=== PATIENT | female | born 1990 | race Two or more races ===

== ENCOUNTER 2017-05-13 21:44 | Emergency (ER) | payer MEDICAID, OTHER, SELFPAY ==
[~2017-05-13] VITALS: Ht 162.6 cm; Wt 71.2 kg
[~2017-05-13 21:44] MED LIST: TAMIFLU75 MG PO
[2017-05-13 23:39] LABS: BASOPHILS % (AUTO) 0.6 % (0.0-2.0); HEMATOCRIT 36.3 % (37.0-47.0); HEMOGLOBIN 12.6 G/DL (12.0-16.0); LYMPHOCYTES % (AUTO) 32.6 % (20.0-45.0); MEAN CORPUSCULAR VOLUME 91 FL (80-99); MONOCYTES % (AUTO) 8.5 % (1.0-10.0); NEUTROPHILS % (AUTO) 56.2 % (45.0-75.0); PLATELET COUNT 292 K/UL (150-450); RED BLOOD COUNT 3.99 M/UL (4.20-5.40); RED CELL DISTRIBUTION WIDTH 11.1 % (11.6-14.8)
[2017-05-13 23:49] LABS: ANION GAP 4 mmol/L (5-15); BLOOD UREA NITROGEN 13 mg/dL (7-18); CALCIUM 8.3 MG/DL (8.5-10.1); CARBON DIOXIDE 30 MMOL/L (21-32); CHLORIDE 104 MMOL/L (98-107); CREATININE 0.6 MG/DL (0.55-1.30); POTASSIUM 3.9 MMOL/L (3.5-5.1); SODIUM 138 MMOL/L (136-145)
[2017-05-13 23:53] LABS: ALANINE AMINOTRANSFERASE 22 U/L (12-78); ALBUMIN 3.5 G/DL (3.4-5.0); ALBUMIN/GLOBULIN RATIO 0.9 (1.0-2.7); ALKALINE PHOSPHATASE 81 U/L (46-116); ASPARTATE AMINO TRANSFERASE 15 U/L (15-37); BILIRUBIN,TOTAL 0.2 MG/DL (0.2-1.0)
[2017-05-13] MEDS ORDERED: IBUPROFEN600 MG ORAL (23:58)
[2017-05-14 00:26] VITALS: BP 108/65
--- NOTE | 2017-05-14 01:33 | Emergency Room Report ---
History of Present Illness General Chief Complaint: Headache Source: Patient Present Illness HPI Patient is a 26-year-old female presented after gradual onset of headache and generalized weakness over the past 2 weeks. Patient had increased pain to her forehead. The this is worse with movement. She denied any fever. She denied any urinary symptoms. She had not been vomiting. She denies being . Patient has no sick contacts at home. Patient states uses control implant. Allergies: Coded Allergies: No Known Allergies (Unverified , 04/08/12) Patient History Past Medical History: see triage record Last Menstrual Period: 04/21/17 Now: No - nexplanon implant in left arm Reviewed Nursing Documentation: PMH: Agreed, PSxH: Agreed Nursing Documentation-PMH Past Medical History: No History, Except For Review of Systems All Other Systems: negative except mentioned in HPI Physical Exam Vital Signs Date Time Temp Pulse Resp B/P (MAP) Pulse Ox O2 Delivery O2 Flow Rate FiO2 05/13/17 22:06 98.3 71 16 108/65 98 Room Air 98.2 General Appearance: well appearing, no apparent distress, alert, GCS 15 Head: normocephalic, atraumatic ENT: hearing grossly normal, normal voice Neck: full range of motion, supple Respiratory: no respiratory distress, speaking full sentences Cardiovascular #1: normal inspection, regular rate, rhythm, no edema Gastrointestinal: normal inspection Genitourinary: ext genitalia/vag normal Musculoskeletal: no calf tenderness Neurologic: normal inspection, alert, oriented x3, responsive, director career III-XII nml as tested, motor strength/tone normal, normal gait Psychiatric: mood/affect normal Skin: no rash Medical Decision Making Diagnostic Impression: Primary Impression: Headache ER Course Patient presented for headache. Differential diagnoses included but was not limited to skull fracture, subarachnoid hemorrhage, meningitis, aneurysm, mass lesion, intracranial hemorrhage.Because of complexity of patient's case laboratory testing and imaging studies were ordered. Laboratory studies are normal hemoglobin as well as normal white blood count. Patient did not have any evidence of urinary infection at this time. The patient's headache appears to be viral in nature. She was given ibuprofen prescription.The patient is advised to follow up with primary care doctor in 1- 2 days. Patient is advised to return if any worsening condition or if any changes in status that are concerning. This report is dictated with [employer] truck loader software which may occasionally lead to discrepancies related to use of this software. Labs Test 05/13/17 23:30 White Blood Count 10.0 K/UL (4.8-10.8) Red Blood Count 3.99 M/UL (4.20-5.40) Hemoglobin 12.6 G/DL (12.0-16.0) Hematocrit 36.3 % (37.0-47.0) Mean Corpuscular Volume 91 FL (80-99) Mean Corpuscular Hemoglobin 31.7 PG (27.0-31.0) Mean Corpuscular Hemoglobin Concent 34.8 G/DL (32.0-36.0) Red Cell Distribution Width 11.1 % (11.6-14.8) Platelet Count 292 K/UL (150-450) Mean Platelet Volume 5.9 FL (6.5-10.1) Neutrophils (%) (Auto) 56.2 % (45.0-75.0) Lymphocytes (%) (Auto) 32.6 % (20.0-45.0) Monocytes (%) (Auto) 8.5 % (1.0-10.0) Eosinophils (%) (Auto) 2.0 % (0.0-3.0) Basophils (%) (Auto) 0.6 % (0.0-2.0) Sodium Level 138 MMOL/L (136-145) Potassium Level 3.9 MMOL/L (3.5-5.1) Chloride Level 104 MMOL/L (98-107) Carbon Dioxide Level 30 MMOL/L (21-32) Anion Gap 4 mmol/L (5-15) Blood Urea Nitrogen 13 mg/dL (7-18) Creatinine 0.6 MG/DL (0.55-1.30) Estimat Glomerular Filtration Rate > 60 mL/min (>60) Glucose Level 83 MG/DL (74-106) Calcium Level 8.3 MG/DL (8.5-10.1) Total Bilirubin 0.2 MG/DL (0.2-1.0) Aspartate Amino Transf (AST/SGOT) 15 U/L (15-37) Alanine Aminotransferase (ALT/SGPT) 22 U/L (12-78) Alkaline Phosphatase 81 U/L (46-116) Total Protein 7.4 G/DL (6.4-8.2) Albumin 3.5 G/DL (3.4-5.0) Globulin 3.9 g/dL Albumin/Globulin Ratio 0.9 (1.0-2.7) Last Vital Signs Date Time Temp Pulse Resp B/P (MAP) Pulse Ox O2 Delivery O2 Flow Rate FiO2 05/14/17 00:26 98.3 16 108/65 98 Room Air 98.2 05/13/17 22:06 71 Status: improved Disposition: HOME, SELF-CARE Condition: Stable Scripts Ibuprofen* (MOTRIN*) 600 Mg Tablet 600 MG ORAL Q8H Y for For Pain, #30 TAB 0 Refills Prov: Noel Masterson 05/13/17 Referrals: [facility]ERR[facility] (PCP) Patient Instructions: General Headache Without Cause Noel Masterson May 14, 2017 01:33
--- NOTE | 2017-05-14 08:56 | Diagnostic Imaging Report ---
Indication: Headache Technique: Continuous helical CT scanning of the head was performed without intravenous contrast material. Axial and coronal 5 mm sections were generated. Radiation dose was minimized using automated exposure control Dose: Total Dose Length Product - DLP 1312.[address] Dose Index - CTDIvol(s) 70.38 mGy. Comparison: 04/07/2007 Findings: The ventricular system is normal in size and configuration. There is no shift of midline structures. No abnormal extra-axial fluid collections are noted. There is no evidence of intracerebral bleeding. No other abnormal high or low density areas are noted within the brain. Intact calvarium. Visualized orbits and sinuses are unremarkable. No significant interim change Impression: Normal CT scan of the head without contrast material. This agrees with the preliminary interpretation provided overnight by [facility]. The CT scanner at [facility] is accredited by the [employer] and the scans are performed using protocols designed to limit radiation exposure to as low as reasonably achievable to attain images of sufficient resolution adequate for diagnostic evaluation.
== END 2017-05-14 00:27 | disposition home or self-care (01) ==
LOC: EMR 22:21
DX: R51 Headache (principal); R53.1 Weakness
CPT/HCPCS: 36415; 70450; 80053; 85025; 99283

== ENCOUNTER 2017-08-20 14:06 | Emergency (ER) | payer OTHER ==
[~2017-08-20] VITALS: Ht 160 cm; Wt 73.5 kg
[~2017-08-20 14:06] MED LIST changes: +IBUPROFEN600 MG ORAL
[2017-08-20 14:20] VITALS: BP 97/61
[2017-08-20] MEDS ORDERED: Fluorescein Strips LEFT EYE ONE (14:45)
[2017-08-20] MEDS ORDERED: Tetracaine 0.5% Opth 4ml Soln LEFT EYE ONE (14:45)
[2017-08-20] MEDS ORDERED: Fluorescein Strips ONE (14:46)
[2017-08-20] MEDS ORDERED: Tetracaine 0.5% Opth 4ml Soln ONE (14:46)
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
[2017-08-20] MEDS ORDERED: TYLENOL EXTRA500 MG ORAL (16:06)
[2017-08-20] MEDS ORDERED: CILOXAN 0.3% O1 DROP RIGHT EYE (16:06)
[2017-08-20 16:16] VITALS: BP 115/78
== END 2017-08-20 19:15 | disposition home or self-care (01) ==
LOC: EMR 16:17
DX: S05.01XA Injury of conjunctiva and corneal abrasion without foreign body, right eye, initial encounter (principal); S05.12XA Contusion of eyeball and orbital tissues, left eye, initial encounter; Y04.0XXA Assault by unarmed brawl or fight, initial encounter; Y92.9 Unspecified place or not applicable
CPT/HCPCS: 70480; 99284

== ENCOUNTER 2017-09-11 14:23 | Emergency (ER) | payer OTHER ==
[~2017-09-11] VITALS: Ht 162.6 cm; Wt 73.5 kg
[~2017-09-11 14:23] MED LIST changes: +CILOXAN 0.3% O1 DROP RIGHT EYE; +TYLENOL EXTRA500 MG ORAL
[2017-09-11] MEDS ORDERED: NKM (14:30)
[2017-09-11 14:33] VITALS: BP 119/78
--- NOTE | 2017-09-11 14:48 | Emergency Room Report ---
History of Present Illness General Chief Complaint: Chest Pain Source: Patient Present Illness HPI Patient is a 27-year-old female who is presenting with palpitations associated with dyspnea and shortness of breath and sweating. Patient states she's had 3 episodes today starting at approximately 1050. She is uncertain how long these episodes lasted currently she feels normal. The patient states a history of these symptoms dating back several years she gets them approximately every 2-3 months and when she gets them she gets them approximately 3 times per month. She has not seen a physician or had any workup for these symptoms in the past.The patient denies significant alcohol or any drug use, denies energy drinks other than once every several days, denies significant soda or caffeinated beverage intake. Allergies: Coded Allergies: No Known Allergies (Unverified , 04/08/12) Patient History Past Medical History: none Past Surgical History: none Pertinent Family History: none Social History: Denies: smoking, alcohol use, drug use Last Menstrual Period: 08/30/17 Nursing Documentation-[facility] Past Medical History: No Stated History Review of Systems Constitutional: Denies: no symptoms, see HPI, chills, sweats, fever, malaise, weakness, other Eye: Denies: no symptoms, see HPI, eye pain, blurred vision, tearing, double vision, nose pain, nose congestion, acuity changes, discharge, other ENT: Denies: no symptoms, see HPI, ear pain, ear discharge, nose pain, nose congestion, throat pain, throat swelling, mouth pain, hearing loss, nasal discharge, other Respiratory: Reports: see HPI Cardiovascular: Reports: see HPI Gastrointestinal: Denies: no symptoms, see HPI, abdominal pain, constipation, diarrhea, nausea, vomiting, melena, hematemesis, other Genitourinary: Denies: no symptoms, see HPI, discharge, dysuria, frequency, hematuria, pain, retention, incontinence, urgency, vag bleed/dc, other Musculoskeletal: Denies: no symptoms, see HPI, back pain, gout, joint pain, joint swelling, muscle pain, muscle stiffness, other Skin: Denies: no symptoms, see HPI, rash, change in color, change in hair/nails , dryness, lesions, other Psychiatric: Denies: no symptoms, see HPI, prior hx, anxiety, depressed feelings, emotional problems, SI, HI, hallucinations, other Neurological: Denies: no symptoms, see HPI, headache, numbness, paresthesia, seizure, tingling, tremors, focal weakness, syncope, dizziness, other Endocrine: Denies: no symptoms, see HPI, excessive sweating, flushing, intolerance to temperature, increased thirst, increased urine, unexplained weight loss, other Hematologic/Lymphatic: Denies: no symptoms, see HPI, anemia, blood clots, easy bleeding, easy bruising, swollen glands, diathesis, other Physical Exam Vital Signs Date Time Temp Pulse Resp B/P (MAP) Pulse Ox O2 Delivery O2 Flow Rate FiO2 09/11/17 14:28 98.4 76 18 119/78 96 Room Air 98.4 Sp02 EP Interpretation: reviewed, normal General Appearance: no apparent distress, alert, GCS 15, non-toxic Head: normocephalic, atraumatic Eyes: bilateral eye normal inspection, bilateral eye PERRL ENT: hearing grossly normal, normal pharynx, no angioedema, normal voice Neck: full range of motion, supple/symm/no masses Respiratory: chest non-tender, lungs clear, normal breath sounds, speaking full sentences Cardiovascular #1: regular rate, rhythm, no edema Cardiovascular #2: 2+ carotid (R), 2+ carotid (L), 2+ radial (R), 2+ radial (L) , 2+ dorsalis pedis (R), 2+ dorsalis pedis (L) Gastrointestinal: normal bowel sounds, non tender, soft, non-distended, no guarding, no rebound Rectal: deferred Genitourinary: normal inspection, no CVA tenderness Musculoskeletal: back normal, gait/station normal, normal range of motion, non- tender, calf tenderness Neurologic: alert, oriented x3, responsive, motor strength/tone normal, sensory intact, speech normal Psychiatric: judgement/insight normal, memory normal, mood/affect normal, no suicidal/homicidal ideation Reflexes: 3+ bicep (R), 3+ bicep (L), 3+ tricep (R), 3+ tricep (L), 3+ knee (R) , 3+ knee (L) Skin: normal color, no rash, warm/dry, well hydrated Lymphatic: no adenopathy Medical Decision Making Diagnostic Impression: Primary Impression: Palpitations ER Course Patient is a 27-year-old female presenting with intermittent episodes of palpitations for quite some time. She had an episode today and chose to come to the emergency department. Workup including EKG and laboratory studies and test are all negative for any acute abnormality. At this point the patient has been monitored for the last 2 hours without any symptoms or arrhythmia noted. I believe patient can be safely discharged home to follow with her primary care physician. The patient agrees with plan. Laboratory Tests Test 09/11/17 14:45 09/11/17 16:25 White Blood Count 8.6 K/UL (4.8-10.8) Red Blood Count 4.54 M/UL (4.20-5.40) Hemoglobin 13.8 G/DL (12.0-16.0) Hematocrit 41.3 % (37.0-47.0) Mean Corpuscular Volume 91 FL (80-99) Mean Corpuscular Hemoglobin 30.3 PG (27.0-31.0) Mean Corpuscular Hemoglobin Concent 33.3 G/DL (32.0-36.0) Red Cell Distribution Width 10.1 % (11.6-14.8) L Platelet Count 339 K/UL (150-450) Mean Platelet Volume 5.7 FL (6.5-10.1) L Neutrophils (%) (Auto) 58.2 % (45.0-75.0) Lymphocytes (%) (Auto) 31.0 % (20.0-45.0) Monocytes (%) (Auto) 8.1 % (1.0-10.0) Eosinophils (%) (Auto) 1.7 % (0.0-3.0) Basophils (%) (Auto) 1.0 % (0.0-2.0) Sodium Level 138 MMOL/L (136-145) Potassium Level 3.8 MMOL/L (3.5-5.1) Chloride Level 105 MMOL/L (98-107) Carbon Dioxide Level 25 MMOL/L (21-32) Anion Gap 8 mmol/L (5-15) Blood Urea Nitrogen 8 mg/dL (7-18) Creatinine 0.8 MG/DL (0.55-1.30) Estimate Glomerular Filtration Rate > 60 mL/min (>60) Glucose Level 102 MG/DL (74-106) Calcium Level 9.4 MG/DL (8.5-10.1) Total Bilirubin 0.2 MG/DL (0.2-1.0) Aspartate Amino Transferase (AST) 22 U/L (15-37) Alanine Aminotransferase (ALT) 27 U/L (12-78) Alkaline Phosphatase 85 U/L (46-116) Total Creatine Kinase 126 U/L (26-308) Creatine Kinase MB 0.6 NG/ML (0.0-3.6) Creatine Kinase MB Relative Index 0.4 Troponin I 0.000 ng/mL (0.000-0.056) Total Protein 8.1 G/DL (6.4-8.2) Albumin 3.9 G/DL (3.4-5.0) Globulin 4.3 g/dL Urine HCG, Qualitative Negative (NEGATIVE) EKG Diagnostic Results EP Interpretation: EKG at 1438-sinus rhythm, rate 65, normal axis, no acute ST or T-wave abnor Rhythm Strip Diag. Results EP Interpretation: yes Rhythm: NSR Last Vital Signs Date Time Temp Pulse Resp B/P (MAP) Pulse Ox O2 Delivery O2 Flow Rate FiO2 09/11/17 14:33 76 18 Room Air 09/11/17 14:33 98.4 119/78 96 98.4 Disposition: HOME, SELF-CARE Condition: Stable Referrals: [facility],REFERR[facility] (PCP) Isacc Belle MD Sep 11, 2017 14:48
[2017-09-11 15:21] LABS: EOSINOPHILS % (AUTO) 1.7 % (0.0-3.0); HEMATOCRIT 41.3 % (37.0-47.0); HEMOGLOBIN 13.8 G/DL (12.0-16.0); MEAN CORPUSCULAR VOLUME 91 FL (80-99); MONOCYTES % (AUTO) 8.1 % (1.0-10.0); NEUTROPHILS % (AUTO) 58.2 % (45.0-75.0); PLATELET COUNT 339 K/UL (150-450); RED BLOOD COUNT 4.54 M/UL (4.20-5.40); RED CELL DISTRIBUTION WIDTH 10.1 % (11.6-14.8); WHITE BLOOD COUNT 8.6 K/UL (4.8-10.8)
--- NOTE | 2017-09-11 15:24 | Diagnostic Imaging Report ---
Indication: Shortness of breath Technique: XRAY Chest 1v Comparison: None Findings: Heart size and mediastinal contours are within normal limits. There is no focal consolidation, pneumothorax or pleural effusion. Osseous structures demonstrate no acute abnormality. Impression: No radiographic evidence of acute cardiopulmonary disease.
[2017-09-11 15:30] LABS: ANION GAP 8 mmol/L (5-15); BLOOD UREA NITROGEN 8 mg/dL (7-18); CALCIUM 9.4 MG/DL (8.5-10.1); CARBON DIOXIDE 25 MMOL/L (21-32); CHLORIDE 105 MMOL/L (98-107); CREATININE 0.8 MG/DL (0.55-1.30); POTASSIUM 3.8 MMOL/L (3.5-5.1); SODIUM 138 MMOL/L (136-145)
[2017-09-11 15:44] LABS: ALKALINE PHOSPHATASE 85 U/L (46-116); BILIRUBIN,TOTAL 0.2 MG/DL (0.2-1.0); CKMB 0.6 NG/ML (0.0-3.6); CREATINE KINASE 126 U/L (26-308)
[2017-09-11 15:56] LABS: ALANINE AMINOTRANSFERASE 27 U/L (12-78); ALBUMIN 3.9 G/DL (3.4-5.0); ASPARTATE AMINO TRANSFERASE 22 U/L (15-37)
[2017-09-11 17:00] VITALS: BP 124/79
[2017-09-11 17:04] VITALS: BP 104/78
--- NOTE | 2017-09-13 13:31 | Cardiology Report ---
APPROVED REPORT EKG Measurement Heart [id number] Normal sinus rhythm Normal ECG
== END 2017-09-11 17:05 | disposition home or self-care (01) ==
LOC: EMR 14:44
DX: R00.2 Palpitations (principal); R06.02 Shortness of breath
CPT/HCPCS: 36415; 71045; 80053; 81025; 82550; 82553; 84484; 85025; 93005; 99283

== ENCOUNTER 2019-08-12 10:33 | Emergency (ER) | payer OTHER ==
[~2019-08-12] VITALS: Ht 162.6 cm; Wt 68.0 kg
[~2019-08-12 10:33] MED LIST changes: +NKM
[2019-08-12 10:58] VITALS: BP 104/73
--- NOTE | 2019-08-12 11:32 | Emergency Room Report ---
History of Present Illness General Chief Complaint: Eye Problems Source: Patient Present Illness HPI This patient states that just prior to arrival she was in her bathtub and there was a lot of conditioner on the floor of the bathtub. She went to reach for her towel and she slipped and hit her left eye on the side of the bathtub. She has pain in the left eye. She denies neck pain. She denies weakness. She denies headache. She denies any other pain or injury. She denies tingling or numbness. She has no other complaints. Allergies: Coded Allergies: No Known Allergies (Unverified , 04/08/12) COVID-19 Screening Contact w/high risk pt: No Recent Travel to affected area: No Experienced COVID-19 symptoms?: No COVID-19 Testing performed SHEAR SCRAPMAN: No Patient History Past Medical History: none Past Surgical History: Social History: Denies: smoking, alcohol use, drug use Last Menstrual Period: 07/10/19 Now: No Reviewed Nursing Documentation: PMH: Agreed; PSxH: Agreed Nursing Documentation-PMH Past Medical History: No History, Except For Review of Systems All Other Systems: negative except mentioned in HPI Physical Exam Vital Signs Date Time Temp Pulse Resp B/P (MAP) Pulse Ox O2 Delivery O2 Flow Rate FiO2 08/12/19 10:40 98.8 90 16 104/73 (83) 97 Room Air Sp02 EP Interpretation: reviewed, normal General Appearance: no apparent distress, alert, GCS 15, non-toxic Head: normocephalic, other - Ivy-orbital ecchymosis and swelling with upper and lower lids involvement. Eyes: left eye other - Subconjuctival hemorrhage at 5 0'clock. Pupil round and reactive. Tiney 1mm hairline laceration of the upper eyelid. Flourescin stain - no uptake under wood's lamp evaluation.; bilateral eye PERRL ENT: hearing grossly normal, normal pharynx, no angioedema, normal voice Neck: full range of motion, supple/symm/no masses Respiratory: no respiratory distress, no retraction, no accessory muscle use, speaking full sentences Rectal: deferred Musculoskeletal: back normal, normal range of motion, gait/station normal, non- tender Neurologic: alert, motor strength/tone normal, oriented x3, sensory intact, responsive, speech normal Psychiatric: judgement/insight normal, memory normal, mood/affect normal, no suicidal/homicidal ideation Skin: no rash, normal color Medical Decision Making Diagnostic Impression: Primary Impression: Left eye injury ER Course This patient presents with blunt eye injury. I am concerned this patient could have globe injury. The patient's pupil is round and reactive which is reassuring. I had ordered a CT scan and then the CT scanner malfunctioned. The patient care was delayed because the CT was unable to be obtained quickly. However, the CT of the orbit was obtained and there is no evidence of globe embarrassment. The patient's visual acuity improved throughout her ED course. Dr. Mirza of ophthalmology was contacted and the patient was sent directly to his office for further evaluation. The patient was given instructions and directions to Dr. Mirza's office. Laboratory Tests Test 08/12/19 12:55 Urine HCG, Qualitative Negative (NEGATIVE) CT/MRI/US Diagnostic Results CT/MRI/US Diagnostic Results : Imaging Test Ordered: CT orbit: Impression Impression: Left periorbital soft tissue contusion No acute bony trauma No CT evidence of ocular injury Last Vital Signs Date Time Temp Pulse Resp B/P (MAP) Pulse Ox O2 Delivery O2 Flow Rate FiO2 08/12/19 10:40 98.8 90 16 104/73 (83) 97 Room Air Disposition: HOME, SELF-CARE Condition: Improved Barbi Garza DO Aug 12, 2019 11:32
--- NOTE | 2019-08-12 11:52 | Diagnostic Imaging Report ---
Indications: Left eye pain after slipping and falling in the bathroom and hitting her on the tub. Severe swelling and bruising, decreased left optic globe visually acuity Technique: Spiral images obtained through the orbits. No IV contrast utilized. Multiplanar reconstructions were generated.Total dose length product 347 mGycm. CTDIvol(s) 15 mGy. Dose reduction achieved using automated exposure control Comparison: none Findings: There is left periorbital soft tissue contusion noted. No acute fractures. No worrisome sinus opacification. There is right-sided nasal jewelry noted. The optic globes are intact. The retroseptal orbits are unremarkable. The visualized intracranial structures are unremarkable. The dentition is intact. The mandibles are intact. Impression: Left periorbital soft tissue contusion No acute bony trauma No CT evidence of ocular injury The CT scanner at [facility] is accredited by the [employer] and the scans are performed using protocols designed to limit radiation exposure to as low as reasonably achievable to attain images of sufficient resolution adequate for diagnostic evaluation.
[2019-08-12] MEDS ORDERED: Fluorescein Strips LEFT EYE ONE (14:00)
[2019-08-12] MEDS ORDERED: Tetracaine 0.5% Opth 4ml Soln LEFT EYE ONE (14:00)
[2019-08-12 14:35] VITALS: BP 108/71
== END 2019-08-12 14:35 | disposition home or self-care (01) ==
LOC: EMR 11:32
DX: S05.92XA Unspecified injury of left eye and orbit, initial encounter (principal); W18.2XXA Fall in (into) shower or empty bathtub, initial encounter; Y92.9 Unspecified place or not applicable; H11.32 Conjunctival hemorrhage, left eye
CPT/HCPCS: 70480; 81025; Z7502; 99284

== ENCOUNTER 2019-12-07 16:33 | Emergency (ER) | payer MEDICAID, OTHER ==
[~2019-12-07] VITALS: Ht 162.6 cm; Wt 70.3 kg
--- NOTE | 2019-12-07 16:45 | NUR ---
ED Nurse Note: PT walked in to ed for C/O pain to left leg x2 months. pt thinks it may be siatica nerve pain.
[2019-12-07 16:49] VITALS: BP 115/70
[2019-12-07] MEDS ORDERED: Ketorolac 30mg Inj IM ONE (17:15)
[2019-12-07] MEDS ORDERED: Methocarbamol 750mg tab ORAL ONE (17:15)
--- NOTE | 2019-12-07 17:21 | Emergency Room Report ---
History of Present Illness General Chief Complaint: Pain Source: Patient Present Illness HPI 29-year-old female with no no significant past medical history here complaining of over 2 months of left-sided buttocks pain that is radiating to left lateral leg with tingling sensation. Reports that started intermittently last year after she gave to her baby however has not taking care of it yet. Patient reports that it might be her sciatic nerve. Denies any fall or injury. Patient is neurovascularly intact. Straight leg test is positive. Denies any other injuries. Denies any calf tenderness and chest pain shortness of breath. Has been taking Tylenol at home with minimal relief. Denies as she reports that she had bilateral tubal ligation last year Allergies: Coded Allergies: No Known Allergies (Unverified , 04/08/12) COVID-19 Screening Contact w/high risk pt: No Recent Travel to affected area: No Experienced COVID-19 symptoms?: No COVID-19 Testing performed DIRECTOR REPORT: No Patient History Past Medical History: see triage record Past Surgical History: none Pertinent Family History: none Last Menstrual Period: 12/1019 Now: No Immunizations: UTD Reviewed Nursing Documentation: PMH: Agreed; PSxH: Agreed Nursing Documentation-PMH Past Medical History: No Stated History Review of Systems All Other Systems: negative except mentioned in HPI Physical Exam Vital Signs Date Time Temp Pulse Resp B/P (MAP) Pulse Ox O2 Delivery O2 Flow Rate FiO2 12/07/19 16:37 98.4 83 17 110/74 (86) 97 Room Air Sp02 EP Interpretation: reviewed, normal General Appearance: no apparent distress, alert, GCS 15, non-toxic Head: normocephalic, atraumatic Eyes: bilateral eye normal inspection, bilateral eye PERRL ENT: hearing grossly normal, normal pharynx, no angioedema, normal voice Neck: full range of motion, supple/symm/no masses Respiratory: chest non-tender, lungs clear, normal breath sounds, no rhonchi, no respiratory distress, no retraction, no wheezing, speaking full sentences Cardiovascular #1: regular rate, rhythm, no edema Cardiovascular #2: 2+ femoral (R), 2+ femoral (L), 2+ dorsalis pedis (R), 2+ dorsalis pedis (L) Gastrointestinal: normal bowel sounds, non tender, soft, non-distended, no guar ding, no rebound Genitourinary: no CVA tenderness Musculoskeletal: back normal, no calf tenderness, pelvis stable, gait/station normal, other - straight leg test positive left leg Neurologic: alert, motor strength/tone normal, oriented x3, sensory intact, responsive, speech normal Psychiatric: judgement/insight normal, memory normal, mood/affect normal, no suicidal/homicidal ideation Skin: no rash Lymphatic: no adenopathy Medical Decision Making PA Attestation All diagnoses and treatment plans were reviewed and discussed with my supervising physician Dr. Valadez Diagnostic Impression: Primary Impression: Sciatic leg pain ER Course 29-year-old female with no no significant past medical history here complaining of over 2 months of left-sided buttocks pain that is radiating to left lateral leg with tingling sensation. Reports that started intermittently last year after she gave to her baby however has not taking care of it yet. Patient reports that it might be her sciatic nerve. Denies any fall or injury. Patient is neurovascularly intact. Straight leg test is positive. Denies any other injuries. Denies any calf tenderness and chest pain shortness of breath. Has been taking Tylenol at home with minimal relief. Denies as she reports that she had bilateral tubal ligation last year Ddx considered but are not limited to: leg sprain, strain, sciatica, DVT Vital signs: are WNL, pt. is afebrile H&PE are most consistent with: sciatic leg pain ORDERS:robaxin, motrin, perdnisone ED INTERVENTIONS: Toradol IM, Dexamethasone IM, robaxin PO DISCHARGE: At this time pt. is stable for d/c to home. Will provide printed patient care instructions, and any necessary prescriptions. Care plan and follow up instructions have been discussed with the patient prior to discharge. At this time no imaging needed as patient patient may need a MRI to be requested by pcp later. Patient stated that she felt better after medication, will follow up with pcp. asked to return to ED if worsening symptoms Last Vital Signs Date Time Temp Pulse Resp B/P (MAP) Pulse Ox O2 Delivery O2 Flow Rate FiO2 12/07/19 16:49 98.2 76 16 115/70 98 Room Air Disposition: HOME, SELF-CARE Condition: Stable Scripts Ibuprofen (Ibu) 800 Mg Tablet 800 MG PO TID, #30 TAB Prov: Gracie Ruiz 12/07/19 Methocarbamol* (ROBAXIN-500*) 500 Mg Tablet 500 MG ORAL TID PRN for For Pain, #15 TAB 0 Refills Prov: Gracie Ruiz 12/07/19 Prednisone* (PREDNISONE*) 20 Mg Tablet 40 MG ORAL DAILY for 5 Days, #10 TAB Prov: Gracie Ruiz 12/07/19 Patient Instructions: Sciatica With [facility] Additional Instructions: take medication as directed, follow up with primary care provider, MRI may be needed. return to ER if worsening symptoms Gracie Ruiz Dec 07, 2019 17:21
[2019-12-07] MEDS ORDERED: ROBAXIN-500MG ORAL (17:22)
[2019-12-07] MEDS ORDERED: IBU800 MG PO (17:22)
[2019-12-07] MEDS ORDERED: PREDNISONE20 MG ORAL (17:22)
[2019-12-07 17:45] VITALS: BP 115/70
--- NOTE | 2019-12-07 17:45 | NUR ---
ED Nurse Note: Pt cleared by health care Provider for discharge. DC instructions/prescription was given and explained to pt and verbalized understanding of teachings. All medical deviecs such as ID band removed. Pt is AAO x4, ambulatory and left with all personal belongings.
== END 2019-12-07 17:45 | disposition home or self-care (01) ==
LOC: EMR 17:00
DX: M54.32 Sciatica, left side (principal)
CPT/HCPCS: 96372; J1100; J1885; Z7502; 99283